=== PATIENT | female | born 1965 | race Caucasian/White ===

== ENCOUNTER 2017-02-16 10:10 | Emergency (ER) | payer OTHER ==
[~2017-02-16] VITALS: Ht 167.6 cm; Wt 76.6 kg
[~2017-02-16 10:10] MED LIST: CIPR500T4 PO; METR-1 PO; PROM25TA5 PO; TRAM50 PO
[2017-02-16 10:15] VITALS: BP 193/101; PULSE 60; RESP 16; TEMP 97.5; O2SAT 100
[2017-02-16] MEDS ORDERED: CYCLOBENZAPRINE HCL 10 MG TAB PO ONE (10:45)
[2017-02-16] MEDS ORDERED: KETOROLAC TROMETHAMINE 30 MG/ML (IVP) VIAL IV PUSH ONE (10:45)
[2017-02-16 10:51] LABS: BLOOD, URINE NEG (NEG); GLUCOSE,URINE NEG (NEG); KETONE, URINE NEG (NEG); NITRITE,URINE NEG (NEG)
[2017-02-16 10:53] LABS: AUTOMATED NEUTROPHIL # 2.6 TH/MM3 (1.8-7.7); EOSINOPHIL % 1.2 % (0.0-4.0); HEMATOCRIT 40.4 % (35.0-46.0); HEMO FLAGS DIFF FINAL; LYMPH % 26.6 % (9.0-44.0); LYMPHOCYTE # 1.1 TH/MM3 (1.0-4.8); MEAN CELL VOLUME 92.2 FL (80.0-100.0); MEAN CORPUSCULAR HEMOGLOBIN 31.1 PG (27.0-34.0); MEAN CORPUSCULAR HGB CONC 33.7 % (32.0-36.0); MONO % 6.3 % (0.0-8.0); NEUT % 64.9 % (16.0-70.0); PLATELET COUNT 273 TH/MM3 (150-450); RED BLOOD COUNT 4.38 MIL/MM3 (4.00-5.30); RED CELL DISTRIBUTION WIDTH 12.3 % (11.6-17.2)
[2017-02-16 10:59] LABS: CHLORIDE 106 MEQ/L (98-107); POTASSIUM 4.2 MEQ/L (3.5-5.1); SODIUM (NA) 143 MEQ/L (136-145)
[2017-02-16 10:59] LABS: METHOD OF COLLECTION CLEAN CATCH; URINE COLOR YELLOW (YELLW/STRAW); WBC, URINE 0-2 /hpf (0-5)
[2017-02-16 11:00] LABS: COMMENT (UR) CULT NOT INDICATED; CULTURE IF INDICATED CULT NOT INDICATED; RBC, URINE 0-3 /hpf (0-3); SQUAMOUS EPITHELIAL CELL URINE 0-5 /hpf (0-5)
[2017-02-16 11:03] LABS: ANION GAP 6 MEQ/L (5-15); BICARBONATE 30.6 MEQ/L (21.0-32.0); BLOOD UREA NITROGEN 15 MG/DL (7-18)
[2017-02-16 11:06] LABS: ALT (GPT) 26 U/L (10-53); AST (GOT) 17 U/L (15-37); GLOMERULAR FILTRATION RATE 96 ML/MIN (>89)
[2017-02-16 11:08] LABS: TOTAL BILIRUBIN ADULT 0.7 MG/DL (0.2-1.0)
[2017-02-16 11:09] LABS: ALKALINE PHOSPHATASE 62 U/L (45-117)
--- NOTE | 2017-02-16 11:33 | PD ---
HPI Chief Complaint: Hypertension Time Seen by Provider: 10:25 Travel History International Travel<30 days: No Contact w/Intl Traveler<30days: No Traveled to known affect area: No History of Present Illness HPI Patient is a 51-year-old female who was sent from [facility] due to high blood pressure. She said that she went to [facility] due to pain to her right ear and right side of her neck. She says for last week she was sick with cold symptoms including cough and congestion as well as some nausea and vomiting. She says this is been going around her house and her kids have been sick as well. She says Sunday she started to have pain to the right side of her head and neck. She was concerned she had an ear infection, so she tried to see her primary doctor, but he had no appointments, so she went to the urgent care. She says she has never really had a problem with blood pressure before. She denies any chest pain or shortness of breath. She denies any blurred vision, nausea, vomiting. PFSH Past Medical History Heart Rhythm Problems: No Cardiac Catheterization: No Cardiovascular Problems: Yes High Cholesterol: No Congestive Heart Failure: No Diabetes: No Diminished Hearing: No Hypertension: Yes Immunizations Current: No Myocardial Infarction: No ?: Not Menopausal: No : 2 Para: 2 Miscarriage: 0 : 0 Past Surgical History Cholecystectomy: Yes (2009) Coronary Artery Bypass Graft: No Family History Family Myocardial Infarction: Yes (FATHER) Social History Alcohol Use: Yes (2/JEREMY ) Tobacco Use: No Substance Use: No Allergies-Medications (Allergen,Severity, Reaction): Coded Allergies: Penicillin (Verified Allergy, Severe, Anaphylaxis, 02/16/17) Reported Meds & Prescriptions Reported Meds & Active Scripts Active No Active Prescriptions or Reported Medications Review of Systems Except as stated in HPI: all other systems reviewed are Neg General / Constitutional: No: Fever, Chills Eyes: No: Blurred Vision HENT: Positive: Congestion Cardiovascular: No: Chest Pain or Discomfort Respiratory: No: Shortness of Breath Gastrointestinal: No: Nausea, Vomiting Musculoskeletal: Positive: Pain Skin: No Rash, No Change in Pigmentation Neurologic: No: Weakness, Dizziness, Sensory Disturbance Physical Exam Narrative GENERAL: Awake and alert, in no acute distress. SKIN: Focused skin assessment warm/dry. HEAD: Atraumatic. Normocephalic. EYES: Pupils equal and round. No scleral icterus. Extraocular movements intact. ENT: Bilateral TMs with no erythema, light reflex is intact. Mucous membranes pink and moist. NECK: Trachea midline. No JVD. CARDIOVASCULAR: Regular rate and rhythm. No murmur appreciated. RESPIRATORY: No accessory muscle use. Clear to auscultation. Breath sounds equal bilaterally. MUSCULOSKELETAL: No obvious deformities. No clubbing. No cyanosis. No edema. NEUROLOGICAL: Awake and alert. No obvious cranial nerve deficits. Motor grossly within normal limits. Normal speech. PSYCHIATRIC: Appropriate mood and affect; insight and judgment normal. Data Data Last Documented VS Vital Signs Date Time Temp Pulse Resp B/P Pulse Ox O2 Delivery O2 Flow Rate FiO2 02/16/17 11:53 169/102 02/16/17 10:15 97.5 60 16 100 Orders Complete Blood Count With Diff (02/16/17 10:32) Comprehensive Metabolic Panel (02/16/17 10:32) Troponin I (02/16/17 10:32) Urinalysis - C+S If Indicated (02/16/17 10:32) Ed Urine Pregnancytest Poc (02/16/17 10:32) Electrocardiogram (02/16/17 ) Ketorolac Inj (Toradol Inj) (02/16/17 10:45) Cyclobenzaprine (Flexeril) (02/16/17 10:45) Iv Access Insert/Monitor (02/16/17 10:32) Labs Laboratory Tests Test 02/16/17 02/16/17 10:43 10:46 Urine Collection Type CLEAN CATCH Urine Color YELLOW Urine Turbidity CLEAR Urine pH 7.0 Urine Specific [place] 1.008 Urine Protein NEG mg/dL Urine Glucose (UA) NEG mg/dL Urine Ketones NEG mg/dL Urine Occult Blood NEG Urine Nitrite NEG Urine Bilirubin NEG Urine Leukocyte Esterase NEG Urine RBC 0-3 /hpf Urine WBC 0-2 /hpf Urine Squamous Epithelial 0-5 /hpf Cells Microscopic Urinalysis Comment CULT NOT INDICATED Urine Collection Time 10:43 White Blood Count 4.0 TH/MM3 Red Blood Count 4.38 MIL/MM3 Hemoglobin 13.6 GM/DL Hematocrit 40.4 % Mean Corpuscular Volume 92.2 FL Mean Corpuscular Hemoglobin 31.1 PG Mean Corpuscular Hemoglobin 33.7 % Concent Red Cell Distribution Width 12.3 % Platelet Count 273 TH/MM3 Mean Platelet Volume 6.2 FL Neutrophils (%) (Auto) 64.9 % Lymphocytes (%) (Auto) 26.6 % Monocytes (%) (Auto) 6.3 % Eosinophils (%) (Auto) 1.2 % Basophils (%) (Auto) 1.0 % Neutrophils # (Auto) 2.6 TH/MM3 Lymphocytes # (Auto) 1.1 TH/MM3 Monocytes # (Auto) 0.3 TH/MM3 Eosinophils # (Auto) 0.0 TH/MM3 Basophils # (Auto) 0.0 TH/MM3 CBC Comment DIFF FINAL Differential Comment Sodium Level 143 MEQ/L Potassium Level 4.2 MEQ/L Chloride Level 106 MEQ/L Carbon Dioxide Level 30.6 MEQ/L Anion Gap 6 MEQ/L Blood Urea Nitrogen 15 MG/DL Creatinine 0.65 MG/DL Estimat Glomerular Filtration 96 ML/MIN Rate Random Glucose 98 MG/DL Calcium Level 9.3 MG/DL Total Bilirubin 0.7 MG/DL Aspartate Amino Transf 17 U/L (AST/SGOT) Alanine Aminotransferase 26 U/L (ALT/SGPT) Alkaline Phosphatase 62 U/L Troponin I LESS THAN 0.02 NG/ML Total Protein 7.6 GM/DL Albumin 4.0 GM/DL [facility] Medical Decision Making Medical Screen Exam Complete: Yes Emergency Medical Condition: Yes Medical Record Reviewed: Yes Interpretation(s) ECG shows normal sinus rhythm at 58, no ST elevation or depression, normal intervals. There is an isolated T-wave inversion in lead 3. Differential Diagnosis Anxiety versus muscle strain versus URI Narrative Course Patient is a 51-year-old female comes in complaining of right-sided head and neck pain. Exam shows no acute abnormalities. Blood pressure was elevated on arrival. Patient has no chest pain or shortness of breath, no blurred vision, no nausea or vomiting. IV established, labs sent. Labs show no acute abnormalities. Creatinine is within normal limits, troponin is negative. ECG shows no signs of ischemia or LVH. Patient given Toradol as well as Flexeril. BP improved from 193/101 to 162/102. Patient is very nervous about her blood pressure. Her pain has improved. Advised to follow up with her primary doctor regarding her BP. Advised to continue Ibuprofen as needed for pain. Advised to avoid oral decongestants, advised to try Flonase. Advised to return to the ED as needed for any worsening symptoms. Diagnosis Primary Impression: Muscle strain Patient Instructions: General Instructions, Hypertension (ED), Muscle Strain ( ED) Additional Instructions: Follow up with your primary care doctor regarding your blood pressure. Avoid oral decongestants. You can try Flonase for continued congestion. Take Ibuprofen as needed for pain. Return to the ED as needed for any worsening symptoms. Scripts No Active Prescriptions or Reported Meds Disposition: 01 DISCHARGE HOME Condition: Stable Aimee Monroy MD Feb 16, 2017 11:33
[2017-02-16 11:53] VITALS: BP 169/102
--- NOTE | 2017-02-17 15:33 | EKG ---
Date Performed: 02/16/2017 Time Performed: 10:35:38 PTAGE: 51 years EKG: Sinus arrhythmia Within normal limits Since PREVIOUS TRACING 03/03/2010, no significant change. PREVIOUS TRACIN03/03/2010 07.42 DOCTOR: Jacob Petersen Interpretating Date/Time 02/17/2017 15:32:30
== END 2017-02-16 12:11 | disposition home or self-care (01) ==
LOC: PHED 10:10
DX: S09.11XA Strain of muscle and tendon of head, initial encounter (principal); S16.1XXA Strain of muscle, fascia and tendon at neck level, initial encounter; R03.0 Elevated blood-pressure reading, without diagnosis of hypertension; H92.01 Otalgia, right ear; R05 Cough; R11.2 Nausea with vomiting, unspecified; Z86.79 Personal history of other diseases of the circulatory system; X58.XXXA Exposure to other specified factors, initial encounter
CPT/HCPCS: 80053; 81001; 84484; 84703; 85025; 93005; 96374; 99284; J1885

== ENCOUNTER → 2017-10-30 | Outpatient (CLI) | payer OTHER ==
[2017-10-30 13:11] LABS: BILIRUBIN, URINE NEG (NEG); BLOOD, URINE NEG (NEG); GLUCOSE,URINE NEG (NEG); KETONE, URINE NEG (NEG); NITRITE,URINE NEG (NEG); SQUAMOUS EPITHELIAL CELL URINE <1 /hpf (0-5); URINE COLOR LIGHT-YELLOW (YELLW/STRAW); URINE LEUKOCYTE ESTERASE NEG (NEG)
[2017-10-30 13:13] LABS: AUTOMATED NEUTROPHIL # 2.9 TH/MM3 (1.8-7.7); BASOPHIL % 0.5 % (0.0-2.0); EOSINOPHIL % 0.6 % (0.0-4.0); HEMATOCRIT 40.8 % (35.0-46.0); HEMOGLOBIN 14.5 GM/DL (11.6-15.3); LYMPHOCYTE # 1.8 TH/MM3 (1.0-4.8); MEAN CELL VOLUME 91.5 FL (80.0-100.0); MEAN CORPUSCULAR HEMOGLOBIN 32.6 PG (27.0-34.0); MEAN CORPUSCULAR HGB CONC 35.7 % (32.0-36.0); MEAN PLATELET VOLUME 6.1 FL (7.0-11.0); MONO % 6.5 % (0.0-8.0); MONOCYTE # 0.3 TH/MM3 (0-0.9); NEUT % 57.4 % (16.0-70.0); PLATELET COUNT 283 TH/MM3 (150-450); RED BLOOD COUNT 4.45 MIL/MM3 (4.00-5.30)
--- NOTE | 2017-10-31 22:11 | EKG ---
Date Performed: 10/30/2017 Time Performed: 12:55:13 PTAGE: 52 years EKG: SINUS BRADYCARDIA POSSIBLE LEFT ATRIAL ENLARGEMENT BORDERLINE ECG NO PREVIOUS TRACING DOCTOR: Prasanth Phoenix Interpretating Date/Time 10/31/2017 22:10:25
== END ==
LOC: CPRE 12:30
PROVIDERS: ATTEND Obstetrics & Gynecology
DX: Z01.810 Encounter for preprocedural cardiovascular examination (principal); Z01.812 Encounter for preprocedural laboratory examination; Z01.818 Encounter for other preprocedural examination; R94.31 Abnormal electrocardiogram [ECG] [EKG]; D06.9 Carcinoma in situ of cervix, unspecified
CPT/HCPCS: 36415; 81001; 84702; 85025; 93005

== ENCOUNTER → 2017-11-01 | Day surgery (SDC) | payer OTHER ==
--- NOTE | 2017-10-31 12:25 | MH ---
cc: SANTO PÉREZ M.D. DATE OF ADMISSION 11/01/2017 ADMITTING DIAGNOSIS TREVOR II-III endocervix HISTORY OF PRESENT ILLNESS The patient is a 50-year-old single white female para 2-0-0-2 who had cryo cervix for TREVOR-I on 08/07/2016. She had followup Pap smear on 08/24/2017. 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 She is now admitted for cone biopsy. PAST MEDICAL HISTORY Previous surgery: She had breast biopsy, benign. MEDICATIONS Vitamins ALLERGIES PENICILLIN TRANSFUSIONS None SERIOUS MEDICAL ILLNESSES Occasional migraines. SOCIAL HISTORY She is single. OBSTETRICAL HISTORY Two vaginal ovaries. PHYSICAL EXAM This is a well-nourished well-developed white female. VITAL SIGNS: Stable. HEENT: Exam is normal. CHEST: Clear. HEART: Regular rate. BREASTS: The breasts are symmetrical. ABDOMEN: Benign. PELVIC: Normal external genitalia and BUS. Vagina is normal, cervix normal. Uterus normal size shape anterior with no adnexal masses. ASSESSMENT As above. PLAN She is now admitted for a cold cone biopsy. While in the office, I explained the diagnosis, the procedures, the risks, benefits and complications and the patient would like to proceed. MD GEOVANY Delgado/RODOLFO /11:50 AM /12:05 PM
[~2017-11-01] VITALS: Ht 167.6 cm; Wt 80.1 kg
[~2017-11-01] MED LIST changes: +ACETAMINOPHEN 1000 MG/100 ML 100 ML IV SCH; +CHLORHEXIDINE GLUCONATE 2 % 1 PACK (2 CLOTHS) TOPICAL PRN; -CIPR500T4 PO; +CLINDAMYCIN 600 MG/NS PREMIX 50 ML IV SCH; +CLINDAMYCIN PHOS 600 MG/4 ML VIAL ONE; +DEXAMETHASONE SOD PHOS 4 MG/ML VIAL IV ONE; +DO NOT ADM ANY ANTICOAGULANT DRUGS PRN; +INSULIN HUMAN REGULAR 1,000 UNITS/10 ML VIAL SQ PRN; +KETOROLAC TROMETHAMINE 30 MG/ML (IVP) VIAL IV PUSH ONE; +LACTATED RINGER'S 1000 ML IV PRN; +LIDOCAINE 1%/EPINEPHrine 1:100,000 SOLN 30 ML VIAL ONE; +LIDOCAINE HCL 1% PF 5 ML SYRINGE OTHER ONE; +METOCLOPRAMIDE HCL 10 MG/2 ML VIAL IV PRN; +METOPROLOL TARTRATE 25 MG TAB PO PRN; -METR-1 PO; +MIDAZOLAM HCL 2 MG/2 ML VIAL ONE; +ONDANSETRON HCL 4 MG/2 ML VIAL IV ONE; +POVIDONE IODINE 5% (ANTISEPSIS KIT) 4 APPLICATIONS EACH NARE PRN; -PROM25TA5 PO; +PROPOFOL 200 MG/20 ML AMP IV ONE; +SODIUM CHLORID 0.9% 500 ML IV PRN; -TRAM50 PO; +ePHEDrine/NS 25 MG/5 ML SYRINGE IV ONE; +oxyCODONE/ACETAMINOPHEN 5 MG/325 MG TAB PO PRN
[2017-11-01 09:10] VITALS: BP 167/99; PULSE 66; RESP 18; TEMP 97; O2SAT 98
--- NOTE | 2017-11-01 13:07 | MP ---
cc: SANTO PÉREZ DATE OF SURGERY 11/01/2017 PREOPERATIVE DIAGNOSIS TREVOR 2-3 endocervix and cervix. POSTOPERATIVE DIAGNOSES TREVOR 2-3 endocervix and cervix. Pathology pending. PROCEDURE Cold knife cone biopsy. ANESTHESIA General ET. SURGEON Santo Pérez MD LOCOMOTIVE ENGINEER [employer]IC [employer] Cerda ESTIMATED BLOOD LOSS FOR THE PROCEDURE About 25 cc. FLUIDS 500 cc crystalloid. OBJECTIVE FINDINGS Following the induction of adequate general endotracheal anesthesia, the patient was prepped and draped supine on the operating table in dorsal lithotomy position in sterile fashion. A heavy weighted speculum was placed in the posterior fornix of the vagina, the anterior lip of the cervix grasped with single-tooth tenaculum. The cervix and uterus sounded to 8 cm. The cervix was injected with lidocaine/epinephrine 10 cc and then a knife with a bent handle was used to excise the cone specimen which was tagged at the 12 o'clock position. Bovie was used to cauterize the cone bed. Then four quadrant sutures of 0 Vicryl sutures were placed going from outside to inside to outside, each suture encompassing one-quarter of the cone bed. These were then tied down with the cervical sound in place to ensure patency. When complete there was good hemostasis. The cone bed was dusted with Keisha, the sutures were cut long, instruments removed. Counts were correct. The patient's legs were taken down from the stirrups. She was awakened and taken to the recovery room in good condition. Santo Pérez MD JAW/SSB /7:46 AM /12:57 PM
== END | disposition home or self-care (01) ==
LOC: HSDC 05:07
PROVIDERS: ATTEND Obstetrics & Gynecology
DX: D06.9 Carcinoma in situ of cervix, unspecified (principal)
CPT/HCPCS: 00940; 57520; 88307; J0131; J1100; J1885; J2250; J2405; J3010; J7120